=== PATIENT | male | born 1995 | race Two or more races ===

== ENCOUNTER 2016-06-23 00:32 | Emergency (ER) | payer OTHER ==
[2016-06-23] MEDS ORDERED: IBUPROFEN 800 MG TABLET ONE (01:42)
--- NOTE | 2016-06-23 07:30 | RAD ---
Name: SMITH PAN Exam: Two-view chest Comparison: None Clinical history: Trauma. Left-sided pain. Findings: 2 views of the chest are submitted. The heart mediastinum and hilar structures are within normal limits. There is no failure, infiltrate, pleural effusion or pneumothorax. Regional skeleton is within normal limits. Impression: No acute cardiopulmonary process
== END 2016-06-23 01:53 | disposition home or self-care (01) ==
LOC: ED 00:32
DX: S20.219A Contusion of unspecified front wall of thorax, initial encounter (principal); F17.210 Nicotine dependence, cigarettes, uncomplicated; V43.52XA Car driver injured in collision with other type car in traffic accident, initial encounter; Y92.410 Unspecified street and highway as the place of occurrence of the external cause
CPT/HCPCS: 71020; 99283 ×2; A9270